=== PATIENT | female | born 1975 | race Caucasian/White ===

== ENCOUNTER 2016-04-10 18:35 | Emergency (ER) | payer MEDICAID, OTHER ==
[~2016-04-10] VITALS: Ht 167.6 cm; Wt 75.7 kg
[2016-04-10 19:05] VITALS: BP 126/66
--- NOTE | 2016-04-10 19:29 | NUR ---
PT TAKEN TO BED 5
--- NOTE | 2016-04-10 19:47 | NUR ---
Dr. Valderrama evaluating patient at bedside.
[2016-04-10] MEDS ORDERED: NACL 0.9% 1,000 ML IV SCH (19:52)
[2016-04-10] MEDS ORDERED: HYDROmorphone 1 MG/ML AMP IVP ONE (19:55)
[2016-04-10] MEDS ORDERED: ONDANSETRON 4 MG/2 ML VIAL IVP ONE ×2 (19:55→21:45)
--- NOTE | 2016-04-10 20:15 | NUR ---
40Y F BIB FAMILY C/O SEVERE HEADACHE. NO DISTRESS NOTED. V/S STABLE.
[2016-04-10] MEDS ORDERED: NACL 0.9% 1,000 ML IV ONE (22:25)
[2016-04-10] MEDS ORDERED: MECLIZINE 25 MG TAB PO ONE (23:00)
[2016-04-11 01:17] VITALS: BP 126/74
--- NOTE | 2016-04-11 01:17 | NUR ---
Patient discharged with v/s stable. Written and verbal after care instructions given and explained BY DR SU Patient alert, oriented and verbalized understanding of instructions. Ambulatory with steady gait. All questions addressed prior to discharge. ID band removed. Patient advised to follow up with PMD. Rx of TYLENOL WITH CODEINE AND ZOFRAN given. Patient educated on indication of medication including possible reaction and side effects. Opportunity to ask questions provided and answered BY DR SU.
== END 2016-04-11 01:17 | disposition home or self-care (01) ==
LOC: MED 18:35
DX: G43.909 Migraine, unspecified, not intractable, without status migrainosus (principal); R03.0 Elevated blood-pressure reading, without diagnosis of hypertension; E78.5 Hyperlipidemia, unspecified
CPT/HCPCS: 70450; 81025; 96361; 96374; 96375; 96376; 99284; J1170; J2405; J8597

== ENCOUNTER 2016-09-15 06:15 | Emergency (ER) | payer OTHER ==
[~2016-09-15] VITALS: Ht 170.2 cm; Wt 80.7 kg
[2016-09-15 06:39] VITALS: BP 134/77
--- NOTE | 2016-09-15 06:45 | NUR ---
PATIENT PRESENTS TO ED FOR RIGHT ABDOMINAL PAIN WITH DIARRHEA STARTED THIS MORNING, DENIES N/V, NO MEDICAL HISTORY .SKIN IS PINK/WARM/DRY; AAOX4 WITH EVEN AND STEADY GAIT; LUNGS CLEAR BL; HR EVEN AND REGULAR; PT DENIES ANY FEVER, CP, SOB, OR COUGH AT THIS TIME; PATIENT STATES PAIN OF 9/10 AT THIS TIME; PATIENT POSITIONED FOR COMFORT; HOB ELEVATED; BEDRAILS UP X2; BED DOWN. ER MD MADE AWARE OF PT STATUS.PT ANETAO
--- NOTE | 2016-09-15 06:49 | NUR ---
Pt taken to bed 6.
--- NOTE | 2016-09-15 06:50 | NUR ---
Patient being evaluated by Dr. Adame at bedside.
[2016-09-15] MEDS ORDERED: oxyCODONE/APAP 5/325 MG 1 TAB TAB PO ONE (07:05)
--- NOTE | 2016-09-15 07:08 | NUR ---
Pt only wants 1 tab of percocet. She states "I get anxious if I take medicine that is too strong." One Percocet wasted.
--- NOTE | 2016-09-15 07:18 | NUR ---
Pt report given to Ezio ZULUAGA. Transfer of care at this time.
[2016-09-15 08:32] VITALS: BP 127/86
--- NOTE | 2016-09-15 08:32 | NUR ---
Patient discharged with v/s stable. Written and verbal after care instructions given and explained. Patient alert, oriented and verbalized understanding of instructions. Ambulatory with steady gait. All questions addressed prior to discharge. ID band removed. Patient advised to follow up with PMD. Rx of Flexiril 5mg , ibuprofen 800mg and norco given. Patient educated on indication of medication including possible reaction and side effects. Opportunity to ask questions provided and answered.
== END 2016-09-15 08:32 | disposition home or self-care (01) ==
LOC: MED 06:15
DX: R10.13 Epigastric pain (principal); R19.7 Diarrhea, unspecified
CPT/HCPCS: 81002; 81025; 99283

== ENCOUNTER 2018-06-04 09:06 | Emergency (ER) | payer OTHER ==
[~2018-06-04] VITALS: Ht 165.1 cm; Wt 79.8 kg
[2018-06-04 09:20] VITALS: BP 139/65
--- NOTE | 2018-06-04 09:28 | NUR ---
Adelita lamb in [facility] - 06/04/18 at 0937 by GABRIELLA urine collected and sent to lab
--- NOTE | 2018-06-04 09:29 | NUR ---
Patient ambulated to bed 8. RN evaluating patient at bedside.
--- NOTE | 2018-06-04 09:31 | NUR ---
42 Y FEMALE BIB FAMILY C/O PELVIC PAIN X 3 DAYS RADIATING UP TO RIGHT SIDE AND LOWER BACK. DENIES N/V, DYSURIA, CONSTIPATION OR DIARRHEA. PT STATES PAIN STARTED SUDDENLY, 09/20. ABDOMEN SOFT AND ROUND. BOWEL SOUNDS ACTIVE IN ALL 4 QUADRANTS. VSS AT THIS TIME. AA0X4, BED IS DOWN, LOCKED, BED RAIL X 1, ERMD NOTIFIED. PMH: NONE
--- NOTE | 2018-06-04 10:49 | NUR ---
VSS AT THIS TIME, PT AA0X4. PT LAYING IN BED.
[2018-06-04 10:51] LABS: APPEARANCE,URINE CLEAR (CLEAR); BILIRUBIN,URINE NEGATIVE (NEGATIVE); BLOOD, URINE NEGATIVE (NEGATIVE); COLOR,URINE YELLOW (YELLOW); LEUKOCYTE ESTERASE ,URINE NEGATIVE (NEGATIVE); NITRITE, URINE NEGATIVE (NEGATIVE); PH,URINE 7.5 (5.0-9.0); UGLUCOSE NEGATIVE (NEGATIVE)
[2018-06-04 10:59] LABS: BARBITURATE, URINE NEG. ng/ml (NEG <=200); BENZODIAZEPINE, URINE NEG. ng/mL (NEG <=200); CANNABINOID, URINE NEG. ng/mL (NEG <=50); COCAINE, URINE NEG. ng/mL (NEG <=300); OPIATE, URINE NEG. ng/mL (NEG <=2000); PHENCYCLIDINE SCREEN,URINE NEG. ng/mL (NEG <=25)
[2018-06-04] MEDS ORDERED: MORPHINE SULFATE 4 MG/ML SYR IM ONE (12:05)
[2018-06-04] MEDS ORDERED: KETOROLAC 60 MG/2 ML VIAL IM ONE (12:05)
[2018-06-04 13:21] VITALS: BP 133/65
--- NOTE | 2018-06-04 13:22 | NUR ---
Patient discharged with v/s stable. Written and verbal after care instructions given and explained. Patient alert, oriented and verbalized understanding of instructions. Ambulatory with steady gait. All questions addressed prior to discharge. ID band removed. Patient advised to follow up with PMD. Rx of VLTAREN given. Patient educated on indication of medication including possible reaction and side effects. Opportunity to ask questions provided and answered.
== END 2018-06-04 13:22 | disposition home or self-care (01) ==
LOC: MED 09:06
DX: R10.2 Pelvic and perineal pain (principal)
CPT/HCPCS: 76830; 80305; 81003; 81025; 96372; 99284; J1885; J2270; Q0092

== ENCOUNTER 2021-05-21 07:28 | Emergency (ER) | payer OTHER ==
[~2021-05-21] VITALS: Ht 165.1 cm; Wt 70.8 kg
[2021-05-21 07:38] VITALS: BP 129/76
--- NOTE | 2021-05-21 07:45 | NUR ---
PATIENT AMBULATED TO BED 4, STEADY GAIT
--- NOTE | 2021-05-21 08:00 | NUR ---
PATIENT STATES SHE HAS RIGHT FLANK PAIN, RIGHT UPPER AND LOWER QUADRANT PAIN ALONG WITH SUPRAPUBIC PAIN. SHE MISSED HER MENSTURAL CYCLE LAST MONTH AND IT STARTED 4 DAYS AGO WITH CLOTS AND PAIN. SHE STATES SHE HAD A MISCARRIAGE BEFORE AND THIS FEELS SIMILAR TO A MISCARRIAGE SHE HAD LAST TIME.
[2021-05-21 08:50] LABS: BASOPHILS % (AUTO) 0.4 % (0.0-2.0); EOSINOPHILS # (AUTO) 0.1 K/uL (0-0.4); EOSINOPHILS % (AUTO) 0.9 % (0.0-4.0); HEMATOCRIT 35.6 % (36-48); HEMOGLOBIN 11.6 g/dL (12.0-16.0); LYMPHOCYTES # (AUTO) 1.7 K/uL (2.5-16.5); LYMPHOCYTES % (AUTO) 20.9 % (20.5-51.1); MEAN CORPUSCULAR HEMOGLOBIN 27 pg (27-31); MEAN CORPUSCULAR HGB CONC 33 g/dL (33-37); MEAN CORPUSCULAR VOLUME 82.2 fL (80-94); MONOCYTES # (AUTO) 0.5 K/uL (0.8-1.0); MONOCYTES % (AUTO) 5.8 % (1.7-9.3); NEUTROPHILS # (AUTO) 5.9 K/uL (1.8-7.7); PLATELET COUNT (AUTO) 352 K/uL (140-450); RED BLOOD CELL COUNT(AUTO) 4.34 MIL/uL (4.20-5.40); RED CELL DISTRIBUTION WIDTH 14.9 % (11.6-13.7); WHITE BLOOD COUNT (AUTO) 8.2 K/uL (4.8-10.8)
[2021-05-21] MEDS ORDERED: ACETAMINOPHEN EXTRA STRENGTH 500 MG TAB PO ONE (09:25)
[2021-05-21 09:33] LABS: ALBUMIN 3.9 g/dL (3.4-5.0); ANION GAP 13.4 (8-16); CARBON DIOXIDE 24.7 mmol/L (21-32); CREATININE 0.7 mg/dL (0.6-1.3); POTASSIUM 4.1 mmol/L (3.5-5.1); TOTAL BILIRUBIN 0.4 mg/dL (0.0-1.0)
[2021-05-21 10:34] LABS: APPEARANCE,URINE CLEAR (CLEAR); BILIRUBIN,URINE NEGATIVE (NEGATIVE); BLOOD, URINE 3+ (NEGATIVE); COLOR,URINE OTHER (YELLOW); LEUKOCYTE ESTERASE ,URINE TRACE (NEGATIVE); NITRITE, URINE NEGATIVE (NEGATIVE); UGLUCOSE NEGATIVE (NEGATIVE)
[2021-05-21] MEDS ORDERED: ACET-10509 PO (10:41)
[2021-05-21] MEDS ORDERED: CEPH-588 PO (10:41)
[2021-05-21 11:03] LABS: RBC,URINE 0-5 /HPF (0-5); WBC,URINE 0-5 /HPF (0-5)
[2021-05-21 11:04] LABS: TRICHOMONAS,URINE None Seen /HPF (None Seen); YEAST,URINE Few /HPF (None Seen)
[2021-05-21 11:05] LABS: CALCIUM OXALATE CRYSTALS,UR None Seen /HPF (None Seen); COARSE GRANULAR CASTS,URINE None Seen /LPF (None Seen); FINE GRANULAR CASTS,URINE None Seen /LPF (None Seen); HYALINE CASTS, URINE None Seen /LPF (None Seen); OTHER CASTS, URINE None Seen /LPF (None Seen); OTHER CRYSTALS,URINE None Seen /HPF (None Seen); RED BLOOD CELL CASTS,URINE None Seen /LPF (None Seen); TRIPLE PHOSPHATE CRYSTAL,UR None Seen /HPF (None Seen); URIC ACID CRYSTALS,URINE None Seen /HPF (None Seen); URINE AMORPHOUS URATE None Seen /HPF (None Seen); WAXY CASTS,URINE None Seen /LPF (None Seen)
--- NOTE | 2021-05-21 12:02 | NUR ---
RHOGAM ORDERED BY MD UPON OBTAINING CONSENT FROM PATIENT ASKED IF PATIENT HAS ANY FURTHER QUESTIONS. PATIENT STATED SHE DOES NOT HAVE FURTHER QUESTIONS. CONSENT OBTAINED, DAUGHTER AT BEDSIDE. RHOGAM RECIEVED BY LAB/BLOOD BANK MATCHED BLOOD TYPE/LOT NUMBER/ EXP DATE ALONG WITH PATIENT INFORMATION WITH LAB RACHEL COSIGN WITH NURSE IN UNIT [facility] IN[facility]CTION ADMINISTERED LEFT GLUTEAL, PATIENT TO BE MONITORDED
[2021-05-21 12:52] VITALS: BP 135/80
--- NOTE | 2021-05-21 12:53 | NUR ---
Patient discharged with v/s stable. Written and verbal after care instructions given and explained. Patient alert, oriented and verbalized understanding of instructions. Ambulatory with steady gait. All questions addressed prior to discharge. ID band removed. Patient advised to follow up with PMD. Rx of ACETAMINOPHEN AND KEFLEX given. Patient educated on indication of medication including possible reaction and side effects. Opportunity to ask questions provided and answered.
== END 2021-05-21 12:53 | disposition home or self-care (01) ==
LOC: MED 07:28
DX: O46.91 Antepartum hemorrhage, unspecified, first trimester (principal); O23.41 Unspecified infection of urinary tract in pregnancy, first trimester; Z3A.01 Less than 8 weeks gestation of pregnancy; Z79.899 Other long term (current) drug therapy; Z79.2 Long term (current) use of antibiotics
CPT/HCPCS: 36415; 76801; 80053; 81001; 81025; 83690; 84702; 85025; 86886; 86900; 86901; 96372; 99284; J2790; Q0092

== ENCOUNTER 2021-06-01 13:02 | Emergency (ER) | payer OTHER ==
[~2021-06-01] VITALS: Ht 165.1 cm; Wt 69.9 kg
[~2021-06-01 13:02] MED LIST: ACET-10509 PO; CEPH-588 PO
[2021-06-01 13:10] VITALS: BP 149/90
--- NOTE | 2021-06-01 13:14 | NUR ---
PT AMBULATED TO ER BED 11 WITH A STEADY GAIT.
--- NOTE | 2021-06-01 13:19 | NUR ---
45 Y/O FEMALE C/O LW BACK PAIN 03/23 STATES SHE HAD A MISCARRIAGE X1 1/2 WEEKS AGO. PT STATES SHE WAS REFERRED BY HER OB DOCTOR TO ED, DENIES VAGINAL BLEEDING, REPORTS BROWN DISCHARGE. DENIES PMH NKA
--- NOTE | 2021-06-01 13:23 | NUR ---
SURVEY WORKER AT PT BEDSIDE.
[2021-06-01 13:37] LABS: BASOPHILS % (AUTO) 0.5 % (0.0-2.0); EOSINOPHILS # (AUTO) 0.1 K/uL (0-0.4); EOSINOPHILS % (AUTO) 1.6 % (0.0-4.0); HEMATOCRIT 35.6 % (36-48); HEMOGLOBIN 11.6 g/dL (12.0-16.0); LYMPHOCYTES % (AUTO) 41.7 % (20.5-51.1); MEAN CORPUSCULAR HEMOGLOBIN 27 pg (27-31); MEAN CORPUSCULAR HGB CONC 33 g/dL (33-37); MEAN CORPUSCULAR VOLUME 82.1 fL (80-94); MONOCYTES # (AUTO) 0.5 K/uL (0.8-1.0); MONOCYTES % (AUTO) 6.3 % (1.7-9.3); NEUTROPHILS # (AUTO) 3.6 K/uL (1.8-7.7); NEUTROPHILS % (AUTO) 49.9 % (42.2-75.2); PLATELET COUNT (AUTO) 394 K/uL (140-450); RED BLOOD CELL COUNT(AUTO) 4.34 MIL/uL (4.20-5.40); RED CELL DISTRIBUTION WIDTH 14.7 % (11.6-13.7); WHITE BLOOD COUNT (AUTO) 7.3 K/uL (4.8-10.8)
--- NOTE | 2021-06-01 13:39 | NUR ---
ULTRASOUND AT PATIENT BEDSIDE
[2021-06-01 13:46] LABS: APPEARANCE,URINE CLEAR (CLEAR); BILIRUBIN,URINE NEGATIVE (NEGATIVE); BLOOD, URINE NEGATIVE (NEGATIVE); COLOR,URINE YELLOW (YELLOW); LEUKOCYTE ESTERASE ,URINE TRACE (NEGATIVE); NITRITE, URINE NEGATIVE (NEGATIVE); PH,URINE 6.5 (5.0-9.0); UGLUCOSE NEGATIVE (NEGATIVE)
[2021-06-01 13:55] LABS: RBC,URINE 0-5 /HPF (0-5)
--- NOTE | 2021-06-01 15:54 | NUR ---
DR. STATON AT PT BEDSIDE FOR FURTHER EVALUATION.
[2021-06-01 16:34] VITALS: BP 132/81
--- NOTE | 2021-06-01 16:35 | NUR ---
Patient discharged with v/s stable. Written and verbal after care instructions given FOR MISCARRIAGE and explained. Patient verbalized understanding. Ambulatory with steady gait. All questions addressed prior to discharge. Advised to follow up with PMD.
== END 2021-06-01 16:34 | disposition home or self-care (01) ==
LOC: MED 13:02
DX: O03.9 Complete or unspecified spontaneous abortion without complication (principal); Z79.899 Other long term (current) drug therapy
CPT/HCPCS: 36415; 76830; 81001; 84702; 85025; 87086; 99284; Q0092